=== PATIENT | female | born 1960 | race Caucasian/White ===

== ENCOUNTER 2019-02-12 08:20 | Day surgery (SDC) | payer OTHER ==
[2019-02-12] MEDS ORDERED: FENTAnyl 50 MCG/ML VIAL (10:10)
[2019-02-12] MEDS ORDERED: MIDAZOLAM 1 MG/ML 2 ML INJ ×2 (10:10)
== END 2019-02-12 11:50 | disposition home or self-care (01) ==
LOC: GIL 08:20
DX: Z12.11 Encounter for screening for malignant neoplasm of colon (principal); D12.2 Benign neoplasm of ascending colon; K64.8 Other hemorrhoids; K57.30 Diverticulosis of large intestine without perforation or abscess without bleeding; I10 Essential (primary) hypertension
CPT/HCPCS: 45380; 88305